=== PATIENT | female | born 1995 | race Two or more races ===

== ENCOUNTER 2019-12-22 10:09 | Emergency (ER) | payer SELFPAY ==
[~2019-12-22] VITALS: Ht 165.1 cm; Wt 36.3 kg
[2019-12-22 10:45] VITALS: BP 143/76
--- NOTE | 2019-12-22 10:45 | NUR ---
ED Nurse Note: Pt came in for general weakness adn sore throat for 2 days. Pt also complains of CP 5/10 for 2 days, ERMD aware. Pt is alert and orientedx4, ambulatory. She is set up on monitor. Pt has been seen by LEOBARDO.
[2019-12-22] MEDS ORDERED: Acetaminophen 500mg (ES) tab ORAL ONE ×3 (11:00→14:00)
[2019-12-22 11:19] LABS: APPEARANCE,URINE CLEAR; BASOPHILS % (AUTO) 1.4 % (0.0-2.0); BILIRUBIN, URINE NEGATIVE (NEGATIVE); COLOR,URINE PALE YELLOW; EOSINOPHILS % (AUTO) 0.1 % (0.0-3.0); GLUCOSE, URINE (UA) NEGATIVE (NEGATIVE); HEMATOCRIT 36.7 % (37.0-47.0); HEMOGLOBIN 13.1 G/DL (12.0-16.0); KETONES,URINE NEGATIVE (NEGATIVE); LEUKOCYTE ESTERASE ,URINE NEGATIVE (NEGATIVE); LYMPHOCYTES % (AUTO) 16.5 % (20.0-45.0); MEAN CORPUSCULAR VOLUME 91 FL (80-99); MONOCYTES % (AUTO) 7.5 % (1.0-10.0); NEUTROPHILS % (AUTO) 74.4 % (45.0-75.0); NITRITE,URINE NEGATIVE (NEGATIVE); PH,URINE 6.5 (4.5-8.0); PLATELET COUNT 235 K/UL (150-450); PROTEIN,URINE NEGATIVE (NEGATIVE); RED BLOOD COUNT 4.02 M/UL (4.20-5.40); RED CELL DISTRIBUTION WIDTH 10.6 % (11.6-14.8); UROBILINOGEN,URINE NORMAL MG/DL (0.0-1.0); WHITE BLOOD COUNT 7.8 K/UL (4.8-10.8)
[2019-12-22 11:24] LABS: ANION GAP 7 mmol/L (5-15); BLOOD UREA NITROGEN 8 mg/dL (7-18); CALCIUM 8.3 MG/DL (8.5-10.1); CARBON DIOXIDE 28 MMOL/L (21-32); CHLORIDE 103 MMOL/L (98-107); CREATININE 0.9 MG/DL (0.55-1.30); POTASSIUM 3.9 MMOL/L (3.5-5.1); SODIUM 138 MMOL/L (136-145)
--- NOTE | 2019-12-22 11:28 | NUR ---
ED Nurse Note: Pt refusing COVID swab. ERMD aware.
[2019-12-22 11:29] LABS: ALANINE AMINOTRANSFERASE 43 U/L (12-78); ALBUMIN/GLOBULIN RATIO 1.2 (1.0-2.7); ALKALINE PHOSPHATASE 68 U/L (46-116); ASPARTATE AMINO TRANSFERASE 64 U/L (15-37); BILIRUBIN,TOTAL 0.4 MG/DL (0.2-1.0)
--- NOTE | 2019-12-22 11:50 | NUR ---
ED Nurse Note: report received from RONNI Thomas. Pt is laying left lateral stating "I dont feel good" and cradling back and forth. ERMD at bedside. pending UA
[2019-12-22] MEDS ORDERED: Ketorolac 30mg Inj IV ONE (12:15)
--- NOTE | 2019-12-22 12:19 | NUR ---
ED Nurse Note: xray at bedside
--- NOTE | 2019-12-22 12:33 | Diagnostic Imaging Report ---
Indication: Weakness Technique: XRAY Chest 1v Comparison: None Findings: Heart size and mediastinal contours are within normal limits for AP technique. There is no focal airspace consolidation, pneumothorax or pleural effusion. Osseous structures demonstrate no acute abnormality. Bilateral nipple piercings incidentally noted. Impression: No radiographic evidence of acute cardiopulmonary disease.
[2019-12-22] MEDS ORDERED: TYLENOL EXTRA500 MG ORAL (12:44)
[2019-12-22 12:53] VITALS: BP 132/79
--- NOTE | 2019-12-22 12:54 | NUR ---
ER DISCHARGE NOTE: Patient is cleared to be discharged per ERMD, pt is aox4, on room air, with stable vital signs. pt was given dc and prescription instructions, pt was able to verbalize understanding, pt id band and iv site removed without complications. pt is able to ambulate with steady gait. pt took all belongings.
--- NOTE | 2019-12-22 13:30 | NUR ---
ED Nurse Note: Pt would not leave ER, ERMD informed.
--- NOTE | 2019-12-22 13:40 | NUR ---
ED Nurse Note: Pt requesting tylenol informed ERMD
--- NOTE | 2019-12-22 13:55 | NUR ---
ED Nurse Note: Pt refused taking tylenol
--- NOTE | 2019-12-22 13:59 | NUR ---
ED Nurse Note: Mannie spoke with pt. Pt left ER
--- NOTE | 2019-12-26 08:08 | Emergency Room Report ---
History of Present Illness General Chief Complaint: Generalized Weakness Source: Patient Present Illness HPI 24-year-old female presents to ED for evaluation. Brought in by EMS. States she feels weak with body aches and sore throat and chills. Pain is dull, 8 out of 10, nonradiating. Afebrile in triage. Denies cough. Denies sick contacts or recent travel. Denies dysuria or hematuria. No other aggravating relieving factors. Denies any other associated symptoms Allergies: Coded Allergies: No Known Allergies (Unverified , 12/22/19) COVID-19 Screening Contact w/high risk pt: No Experienced COVID-19 symptoms?: No COVID-19 Testing performed CAB STARTER: No Patient History Past Medical History: none Past Surgical History: none Pertinent Family History: none Social History: Denies: smoking, alcohol use, drug use Now: No Immunizations: UTD Reviewed Nursing Documentation: PMH: Agreed; PSxH: Agreed Nursing Documentation-PMH Past Medical History: No Stated History Review of Systems All Other Systems: negative except mentioned in HPI Physical Exam Vital Signs Date Time Temp Pulse Resp B/P (MAP) Pulse Ox O2 Delivery O2 Flow Rate FiO2 12/22/19 10:05 98.2 88 18 144/80 (101) 98 Room Air 12/22/19 10:45 99 Sp02 EP Interpretation: reviewed, normal General Appearance: no apparent distress, alert, GCS 15, non-toxic Head: normocephalic, atraumatic Eyes: bilateral eye normal inspection, bilateral eye PERRL ENT: hearing grossly normal, normal pharynx, no angioedema, normal voice Neck: full range of motion, supple/symm/no masses Respiratory: chest non-tender, lungs clear, normal breath sounds, speaking full sentences Cardiovascular #1: regular rate, rhythm, no edema Cardiovascular #2: 2+ carotid (R), 2+ carotid (L), 2+ radial (R), 2+ radial (L), 2+ dorsalis pedis (R), 2+ dorsalis pedis (L) Gastrointestinal: normal bowel sounds, non tender, soft, non-distended, no guarding, no rebound Rectal: deferred Genitourinary: normal inspection, no CVA tenderness Musculoskeletal: back normal, normal range of motion, gait/station normal, non- tender Neurologic: alert, motor strength/tone normal, oriented x3, sensory intact, responsive, speech normal Psychiatric: judgement/insight normal, memory normal, mood/affect normal, no suicidal/homicidal ideation Reflexes: 3+ bicep (R), 3+ bicep (L), 3+ tricep (R), 3+ tricep (L), 3+ knee (R), 3+ knee (L) Lymphatic: no adenopathy Medical Decision Making Diagnostic Impression: Primary Impression: Episode of generalized weakness ER Course Hospital Course 24-year-old female presents to ED complaining of bodyaches, weakness, chills Differential diagnoses include: URI, bronchitis, asthma/COPD, pneumonia Clinical course Patient placed on stretcher. After initial history, physical exam reveals a female in no acute distress. Initially patient was very uncooperative with exam and refusing to allow me to properly examine her including looking her ears throat and listen to her lungs. Patient ultimately agreed bilateral TM unremarkable. No pharyngeal erythema. No tonsillar exudates. No lymphadenopathy. lungs clear. I ordered labs, IV fluids, meds, chest x-ray. Labs reviewed- no leukocytosis, hemoglobin/hematocrit stable, electrolytes okay, UA negative Chest x-ray shows no focal consolidaiton Patient continues to state that she feels weak covers herself with a blanket and refuses to talk to anybody. Will not provide further clarification. I offered to check a Covid swab and patient refused. Vitals stable. Labs unremarkable. Believe patient can be safely discharged. Patient is refusing all attempts for discharge and then ultimately agrees to discharge. Safe for discharge. I will provide referrals Diagnosis -episode of generalized weakness Stable and discharged. Instructed to followup with PMD. Return to ED if symptoms recur or worsen Labs Test 12/22/19 11:00 White Blood Count 7.8 K/UL (4.8-10.8) Red Blood Count 4.02 M/UL (4.20-5.40) Hemoglobin 13.1 G/DL (12.0-16.0) Hematocrit 36.7 % (37.0-47.0) Mean Corpuscular Volume 91 FL (80-99) Mean Corpuscular Hemoglobin 32.6 PG (27.0-31.0) Mean Corpuscular Hemoglobin Concent 35.8 G/DL (32.0-36.0) Red Cell Distribution Width 10.6 % (11.6-14.8) Platelet Count 235 K/UL (150-450) Mean Platelet Volume 5.9 FL (6.5-10.1) Neutrophils (%) (Auto) 74.4 % (45.0-75.0) Lymphocytes (%) (Auto) 16.5 % (20.0-45.0) Monocytes (%) (Auto) 7.5 % (1.0-10.0) Eosinophils (%) (Auto) 0.1 % (0.0-3.0) Basophils (%) (Auto) 1.4 % (0.0-2.0) Urine Color Pale yellow Urine Appearance Clear Urine pH 6.5 (4.5-8.0) Urine Specific [place] 1.010 (1.005-1.035) Urine Protein Negative (NEGATIVE) Urine Glucose (UA) Negative (NEGATIVE) Urine Ketones Negative (NEGATIVE) Urine Blood Negative (NEGATIVE) Urine Nitrite Negative (NEGATIVE) Urine Bilirubin Negative (NEGATIVE) Urine Urobilinogen Normal MG/DL (0.0-1.0) Urine Leukocyte Esterase Negative (NEGATIVE) Urine HCG, Qualitative Negative (NEGATIVE) Sodium Level 138 MMOL/L (136-145) Potassium Level 3.9 MMOL/L (3.5-5.1) Chloride Level 103 MMOL/L (98-107) Carbon Dioxide Level 28 MMOL/L (21-32) Anion Gap 7 mmol/L (5-15) Blood Urea Nitrogen 8 mg/dL (7-18) Creatinine 0.9 MG/DL (0.55-1.30) Estimat Glomerular Filtration Rate > 60 mL/min (>60) Glucose Level 75 MG/DL (74-106) Calcium Level 8.3 MG/DL (8.5-10.1) Total Bilirubin 0.4 MG/DL (0.2-1.0) Aspartate Amino Transf (AST/SGOT) 64 U/L (15-37) Alanine Aminotransferase (ALT/SGPT) 43 U/L (12-78) Alkaline Phosphatase 68 U/L (46-116) Total Protein 7.4 G/DL (6.4-8.2) Albumin 4.0 G/DL (3.4-5.0) Globulin 3.4 g/dL Albumin/Globulin Ratio 1.2 (1.0-2.7) Chest X-Ray Diagnostic Results Chest X-Ray Diagnostic Results : Chest X-Ray Ordered: Yes # of Views/Limited/Complete: 1 View Indication: Other EP Interpretation: Yes Interpretation: no consolidation, no effusion, no pneumothorax, no acute cardiopulmonary disease Impression: No acute disease Electronically Signed by: Electronically signed by Vasyl Anguiano MD Last Vital Signs Date Time Temp Pulse Resp B/P (MAP) Pulse Ox O2 Delivery O2 Flow Rate FiO2 12/22/19 13:15 98.5 12/22/19 12:53 89 17 132/79 100 Room Air 99 Status: improved Disposition: HOME, SELF-CARE Condition: Stable Scripts Acetaminophen* (TYLENOL EXTRA STRENGTH*) 500 Mg Tablet 500 MG ORAL Q8H PRN for Prn Headache/Temp > 101, #30 TAB 0 Refills Prov: Vasyl Anguiano MD 12/22/19 Referrals: [facility] Patient Instructions: Weakness, [id number] Vasyl Anguiano MD Dec 26, 2019 08:08
== END 2019-12-22 13:59 | disposition home or self-care (01) ==
LOC: EDBD 10:09 → EMR 12:30
DX: R53.1 Weakness (principal); R07.0 Pain in throat
CPT/HCPCS: 36415; 71045; 80053; 81003; 81025; 85025; 96361; 96374; 96375; 99284; J1885; J2405; J7030